=== PATIENT | male | born 1980 ===

== ENCOUNTER 2016-08-01 14:32 | Outpatient (RCR) | payer BC, OTHER | END 2016-08-01 16:00 | disposition home or self-care (01) | LOC: WOUNDCARE 14:32 | PROVIDERS: ATTEND Surgery | DX: L92.8 Other granulomatous disorders of the skin and subcutaneous tissue (principal); L97.522 Non-pressure chronic ulcer of other part of left foot with fat layer exposed; L60.0 Ingrowing nail; L03.116 Cellulitis of left lower limb | CPT/HCPCS: 17250; 99212; 99213 ==